=== PATIENT | male | born 1970 | race Caucasian/White ===

== ENCOUNTER 2021-10-02 10:17 | Emergency (ER) | payer MEDICAID, SELFPAY ==
[2021-10-02 10:18] VITALS: BP 156/99; PULSE 76; RESP 16; TEMP 36.6; O2SAT 99; BMI 34.3
[2021-10-02 10:48] VITALS: BMI 34.6
--- NOTE | 2021-10-02 11:14 | EDS_ITS ---
HPI History of Present Illness Chief Complaint: Neuro S/Sx Informant: patient Onset/Context/Timing Onset: Today Context: Sudden Onset Timing: Continuous Quality: I slowed down Location: Generalized Worsened by: Nothing Relieved by: Nothing Narrative Narrative: Patient presents with headache and feeling like I slowed down. Patient states this began today. Patient states he began while he was in group therapy today. Patient states his hands got cold. Patient admits to a left occipital headache. Patient states that he started amlodipine and omeprazole today. Patient states his symptoms began after he took the amlodipine this morning. Patient denies any paresthesias. Patient denies any visual changes. Patient denies any nausea or vomiting. [facility] Medical History Arthritis GERD (gastroesophageal reflux disease) H/O hemorrhoids Hypertension Home Medications amlodipine 5 mg PO DAILY 10/02/21 [History Last Taken Unknown] ibuprofen 600 mg PO Q8H 10/02/21 [History Last Taken Unknown] omeprazole 40 mg PO DAILY 10/02/21 [History Last Taken Unknown] Allergy/AdvReac Type Severity Reaction Status Date / Time Penicillins [PCN] Allergy Unknown Verified 10/02/21 10:20 Social History Smoking Status: Current every day smoker tobacco type: cigarettes ROS ROS ED Constitutional Constitutional ED: Denies chills or fever(s) Eyes Eyes: Denies blurry vision or change in vision ENT ENT ED: Denies rhinorrhea or sore throat Cardiovascular Cardiovascular: Denies chest pain or palpitations Respiratory/Chest Respiratory/Chest: Denies cough or dyspnea Gastrointestinal Gastrointestinal: Denies nausea or vomiting Genitourinary Genitourinary ED: Denies dysuria or hematuria Musculoskeletal Musculoskeletal: Denies back pain or neck pain Integumentary Denies abscess or rash Neurologic Neurologic: Reports headache(s); Denies weakness Allergic/Immunologic Allergic/Immunologic ED: Denies mouth swelling or urticaria EXAM Physical Exam Const Vital Signs: 10/02/21 10:18 Temperature 97.8 F Temperature Source Temporal Pulse Rate 76 Respiratory Rate 16 Blood Pressure 156/99 H Blood Pressure Mean 118 Pulse Ox 99 Oxygen Delivery Method Room Air Positive well nourished and well developed General Appearance ED: well developed HEENT Reports moist mucous membranes Neck supple and no JVD Resp normal respiratory effort and clear to auscultation bilaterally Cardio regular rate, regular rhythm and no murmurs GI normal to inspection, nondistended, normoactive bowel sounds and non-tender Palpation: soft Extremity normal to inspection General Extremety ED: Negative for edema or tenderness General Extremity: Negative for edema Neuro oriented x3, CN's II-XII intact bilaterally and no sensory deficits noted Sensorium / Orientation: alert Motor Exam: strength 5/5 throughout Psych mental status grossly normal Skin no rashes or lesions noted MDM MDM MDM Narrative Medical decision making narrative: CBC was within normal limits. PT was INR and PTT were within normal limits. Comprehensive metabolic profile was obtained and was within normal limits. CT scan of the brain was obtained. There is no acute intracranial abnormality. This was interpreted by the radiologist and reviewed by myself. Patient is feeling better on reevaluation. Patient was instructed to follow-up with his primary care physician in 5 to 7 days for reevaluation. Patient was instructed return if worse in any way. Patient understood and was agreeable with the plan. All questions were answered. Lab Data Attestation: I reviewed the patient's lab results. Labs: Laboratory Results - last 24 hr 10/02/21 10/02/21 10/02/21 11:56 11:56 11:56 WBC 6.0 RBC 5.38 Hgb 16.6 H Hct 48.1 MCV 89.4 MCH 30.9 MCHC 34.5 RDW Std Deviation 44.2 H RDW Coeff of Minal 13.5 Plt Count 296 MPV 8.7 Immature Gran % (Auto) 0.300 Neut % (Auto) 64.3 Lymph % (Auto) 23.4 [place] % (Auto) 10.7 H Eos % (Auto) 1.0 Baso % (Auto) 0.3 Absolute Neuts (auto) 3.8 Absolute Lymphs (auto) 1.40 Nucleated RBC % 0 PT 12.6 INR 1.0 APTT 35.7 Sodium 137 Potassium 4.3 Chloride 105 Carbon Dioxide 28.0 Anion Gap 4 L BUN 12 Creatinine 0.86 Estim Creat Clear Calc 84.13 Est GFR (MDRD) Af Amer 121 Est GFR (MDRD) Non-Af 100 BUN/Creatinine Ratio 14.0 Glucose 92 Calcium 9.0 Total Bilirubin 1.10 H AST 29 ALT 47 Alkaline Phosphatase 96 Total Protein 7.9 Albumin 4.2 Globulin 3.7 Albumin/Globulin Ratio 1.1 Radiography Chest X-Ray - ED: 1 View, Read by ED Physician, Read by Radiologist and Normal Diagnostic Testing: Clinical Impression(s) from Imaging Studies Brain CT 10/02/21 11:46 IMPRESSION: Normal unenhanced CT scan of the brain. Electronically Signed: Flynn Cisneros MD at 12:20 EST , Discharge Plan Triage Chief Complaint: Neuro S/Sx ED Provider: Breezy Cobb Dx/Rx/DC Orders Clinical Impression: Episode of confusion Instructions: ED Confusion Prescriptions: No Action amlodipine 5 mg tablet 5 mg PO DAILY RF: 0 omeprazole 40 mg capsule,delayed release(DR/EC) 40 mg PO DAILY RF: 0 ibuprofen 400 MG tablet 600 mg PO Q8H RF: 0 Primary Care Provider: Care Physician,No Primary Referrals: Care Physician,No Primary [Primary Care Provider] - Doctor,Your [STAFF PHYSICIAN] - 5-7 Days Disposition Disposition: Home, Self Care
--- NOTE | 2021-10-02 11:46 | CT_ITS ---
STUDY: CT BRAIN WITHOUT CONTRAST REASON FOR EXAM: Male, 51 years old. Confusion RADIATION DOSAGE (If Supplied By Facility): CTDIvol = ( 44.99 ) mGy, DLP = ( 829.85 ) mGycm TECHNIQUE: Transaxial CT imaging of the brain was performed without administration of intravenous contrast material. Individualized dose optimization techniques were used for this CT. COMPARISON: No relevant priors. FINDINGS: Normal soft tissue structures. Normal calvarium. Normal size ventricles and extra-axial spaces for the patient''s age. Normal white matter tracts of the cerebral hemispheres. Normal basal ganglia and thalami. Normal brainstem. Normal cerebellum. There is no intracranial hemorrhage. There are no findings of an acute ischemic infarction. Normal visualized paranasal sinuses. CT/Brain/Head without Contrast IMPRESSION: Normal unenhanced CT scan of the brain. Electronically Signed: Flynn Cisneros MD at 12:20 EST ,
[2021-10-02 12:10] LABS: Absolute Neutrophil Count 3.8 X10^3/uL (2.0-7.7); Basophil# 0.02 X10^3/uL; Basophil% 0.3 % (0-1); Eosinophil# 0.06 X10^3/uL; Hematocrit 48.1 % (40-54); Hemoglobin 16.6 g/dL (13.0-16.5); Lymphocyte % 23.4 % (19-41); Mean Corp Hgb Conc 34.5 g/dL (32-36); Mean Corpuscular Hgb 30.9 pg (27.0-32.0); Mean Corpuscular Volume 89.4 fL (80-94); Mean Platelet Vol. 8.7 fl (6.2-12.0); Monocyte# 0.64 X10^3/uL; Monocyte% 10.7 % (0-10); NRBC Flagged by Analyzer 0 % (0-5); Neutrophil # 3.84 X10^3/uL (2.7-7.7); Neutrophil % 64.3 % (47-70); Platelet Count 296 K/mm3 (150-450); RBC Distribution Width CV 13.5 % (11.6-14.6); RBC Distribution Width SD 44.2 fl (35.1-43.9); Red Blood Count 5.38 M/mm3 (4.6-6.2)
[2021-10-02 12:17] LABS: Prothrombin Time (Protime)PT. 12.6 SECONDS (11.7-14.9)
[2021-10-02 12:18] LABS: Partial Thromboplast Time 35.7 Seconds (24.1-36.2)
[2021-10-02 12:24] LABS: ALB/GLOB Ratio 1.1 RATIO (0.9-2.4); AST(SGOT) 29 U/L (15-37); Alanine Aminotransfer ALT/SGPT 47 U/L (16-61); Albumin, Serum 4.2 g/dL (3.2-5.0); Alkaline Phosphatase 96 U/L (45-117); Anion Gap 4 (5-15); BUN 12 mg/dL (7-18); Chloride 105 mmol/L (98-107); Creatinine, Serum 0.86 mg/dL (0.70-1.30); EST Glomerular Filtration Rate 100 mL/min (>60); Est Glom Filt Rate - Afr Amer 121 mL/min (>60); Estimated Creatinine Clearance 84.13 ml/min; Globulin 3.7 g/dL (2.2-4.2); Glucose 92 mg/dL (74-106); Potassium 4.3 mmol/L (3.5-5.1); Protein, Total 7.9 g/dL (6.4-8.2); Sodium Level 137 mmol/L (136-145)
[2021-10-02 12:56] VITALS: BP 150/96; PULSE 61; RESP 19; O2SAT 97
== END 2021-10-02 13:08 | disposition home or self-care (01) ==
PROVIDERS: Emergency Provider Emergency Medicine; Visit Provider Emergency Medicine
DX: R41.0 Disorientation, unspecified (principal); R51.9 Headache, unspecified; F17.210 Nicotine dependence, cigarettes, uncomplicated; I10 Essential (primary) hypertension; M19.90 Unspecified osteoarthritis, unspecified site; K21.9 Gastro-esophageal reflux disease without esophagitis; Z79.899 Other long term (current) drug therapy
CPT/HCPCS: 70450; 80053; 85025; 85610; 85730; 87426; 99284

== ENCOUNTER 2022-05-08 14:32 | Emergency (ER) | payer BC, MEDICAID, SELFPAY ==
[2022-05-08 14:33] VITALS: BP 146/99; PULSE 97; RESP 16; TEMP 36.6; O2SAT 98; BMI 31.7
--- NOTE | 2022-05-08 15:09 | EX.ED.DYSGE1 ---
HPI History of Present Illness Chief Complaint: Lower Extremity Injury Informant: patient Narrative Narrative: Patient was referred here today for left calf swelling and pain. He states this started about 7 to 10 days ago. Nothing seemed to initiated. It just started getting painful and then swelled. He was seen at [facility] emergency department. They did an ultrasound that reported a ruptured Heart's cyst. He does have a history of knee problems on the side but is not actually having knee pain. This is posterior calf pain. No blood work was done at this point. They referred him to orthopedics. He tried to get into see anybody he could for follow-up. So he saw [facility] about 2 days ago. They placed him on an unknown antibiotic 3 times a day. He states he has been icing and elevating the leg and has been getting progressively a bit better. The swelling is less and the pain is less. It was improving even before the antibiotics. He has never had fevers chills nausea vomiting or felt ill in any way. He has no recent infections. He had no puncture or poke or trauma to the leg. He has history of drug use in the past but no IV drug use in quite some time. He saw orthopedics today. They were concerned about possible infected abscess and referred him here for blood work and either CT or MRI imaging. [facility] Medical History Arthritis GERD (gastroesophageal reflux disease) H/O hemorrhoids Hypertension Left leg cellulitis Home Medications amlodipine 5 mg tablet 5 mg PO DAILY 10/02/21 [History Last Taken 05/08/22] ibuprofen 400 mg tablet 600 mg PO Q8H PRN Pain 10/02/21 [History Last Taken Unknown] omeprazole 40 mg capsule,delayed release 40 mg PO DAILY 10/02/21 [History Last Taken 05/08/22] lisinopril 5 mg tablet 5 mg PO DAILY 05/08/22 [History Last Taken 05/08/22] Allergy/AdvReac Type Severity Reaction Status Date / Time Penicillins [PCN] Allergy Unknown Verified 05/08/22 14:36 Social History Smoking Status: Current every day smoker tobacco type: cigarettes ROS ROS ED Constitutional Constitutional ED: Denies chills, fever(s), subjective or sweats ENT ENT ED: Denies sore throat Cardiovascular Cardiovascular: Denies chest pain or palpitations Respiratory/Chest Respiratory/Chest: Denies cough or dyspnea Gastrointestinal Gastrointestinal: Denies abdominal pain, diarrhea, nausea or vomiting Musculoskeletal Musculoskeletal: Reports other Details: See history of present illness peer ; Denies arthralgias or myalgias Integumentary Reports other Details: No erythema. He has had some swelling. See history of present illness. Neurologic Neurologic: Denies paresthesias or weakness Endocrine Endocrinology: Denies polydipsia or polyuria Hematologic/Lymphatic Hematologic/Lymphatic: Denies easy bleeding, easy bruising or lymphadenopathy Allergic/Immunologic Allergic/Immunologic ED: Denies urticaria EXAM Physical Exam Const Vital Signs: 05/08/22 14:33 05/08/22 15:23 05/08/22 17:19 Temperature 98 F 98 F 97.7 F L Temperature Source Temporal Temporal Axillary Pulse Rate 97 97 71 Respiratory Rate 16 16 18 Blood Pressure 146/99 H 146/99 H 152/87 H Blood Pressure Mean 114 114 108 Pulse Ox 98 98 99 Oxygen Delivery Method Room Air Room Air Room Air 05/08/22 18:36 05/08/22 19:18 Temperature Temperature Source Pulse Rate 64 66 Respiratory Rate 18 17 Blood Pressure 157/78 H 127/70 H Blood Pressure Mean 104 Pulse Ox 98 99 Oxygen Delivery Method Room Air Positive well nourished and well developed General Appearance ED: well developed and NAD HEENT Reports moist mucous membranes Eyes General Eye ED: Negative for scleral icterus Neck no lymphadenopathy Resp normal respiratory effort and clear to auscultation bilaterally Cardio regular rate and regular rhythm GI normal to inspection, nondistended, normoactive bowel sounds Palpation: soft Back/Spine no CVA tenderness Extremity Extremity Narrative: Patient does have some swelling of his calf on the left compared to the right. Trace edema at the ankle. There is almost a hint of bruising. There is no significant erythema. There is mild warmth. Distal pulses are intact. I can squeeze his calf pretty firmly and there is no obvious discomfort. I see no lymphangitic streaking. I feel no proximal lymph nodes. Neuro Sensorium / Orientation: alert Psych mental status grossly normal Skin Skin Narrative: See above. MDM MDM MDM Narrative Medical decision making narrative: Patient's white count was normal. However, he did have a slight neutrophil predominance. Electrolytes were normal. Glucose was normal. His ESR was normal but his C-reactive protein was elevated. CT scan of his lower extremity showed suprapatellar effusion, degenerative changes of the knee, popliteal cyst and a fluid collection that was multiloculated and some hyperdense material progressing down the calf. This could be hematoma but infection is certainly not ruled out. I discussed case with orthopedic surgeon, Dr. Nichole. With this patient's history, the neutrophil predominance, elevated CRP and the CT findings he recommended inpatient therapy with IV antibiotics. He would not go to the OR at this time. Plan was to call the hospitalist. I went back to notify the patient. The patient wants to go home now. He states he will come back in the morning and consider being admitted but he has things he has to get arranged at home now. I encouraged him to stay. I explained the risks and benefits. He is able to repeat those back to me. Initially he was refusing getting an IV dose of antibiotics before he left. I was able to convince him to at least get this. He will be signed out AMA. Lab Data Attestation: I reviewed the patient's lab results. Labs: Laboratory Results - last 24 hr 05/08/22 05/08/22 15:25 15:25 WBC 5.7 RBC 5.09 Hgb 15.6 Hct 46.3 MCV 91.0 MCH 30.6 MCHC 33.7 RDW Std Deviation 43.3 RDW Coeff of Minal 13.0 Plt Count 352 MPV 9.6 Immature Gran % (Auto) 0.400 Neut % (Auto) 76.4 H Lymph % (Auto) 13.2 L [place] % (Auto) 9.3 Eos % (Auto) 0.5 Baso % (Auto) 0.2 Absolute Neuts (auto) 4.3 Absolute Lymphs (auto) 0.75 L Nucleated RBC % 0 ESR 12 Sodium 142 Potassium 4.1 Chloride 107 Carbon Dioxide 28.0 Anion Gap 7 BUN 13 Creatinine 0.85 Estim Creat Clear Calc 84.16 Est GFR (MDRD) Af Amer 122 Est GFR (MDRD) Non-Af 101 BUN/Creatinine Ratio 15.3 Glucose 96 Calcium 9.6 C-React Prot Ext Range 8.52 H Radiography Diagnostic Testing: Clinical Impression(s) from Imaging Studies Lower Extremity CT 05/08/22 15:14 IMPRESSION: Suprapatellar effusion. Degenerative findings of the knee. Popliteal cyst. Along the medial aspect of the lower extremity, there is a fluid collection measuring 141 x 17 mm. This appears multiloculated and contains hyperdense material. This may be hematoma. Close interval follow-up is recommended. Abscess is not entirely excluded. Electronically Signed: Jong Hernandez MD at 16:27 EDT Reading Location ID and State: [facility] / [place] , Service support , Discharge Plan Triage Chief Complaint: Lower Extremity Injury ED Provider: Alfie Rudd Dx/Rx/DC Orders Clinical Impression: Infected fluid collection, Left against medical advice Instructions: Cellulitis, ED Abscess Antibiotic Treatment Only Prescriptions: No Action lisinopril 5 mg tablet 5 mg PO DAILY amlodipine 5 mg tablet 5 mg PO DAILY omeprazole 40 mg capsule,delayed release(DR/EC) 40 mg PO DAILY ibuprofen 400 MG tablet 600 mg PO Q8H PRN (Reason: Pain) Primary Care Provider: Reece Timmons NP Referrals: Reece Timmons RETAIL SHIFT LEADER, RETAIL SHIFT LEADER-C [Primary Care Provider] - Activity Restrictions/Additional Instructions: Stay on your antibiotics. Disposition Disposition: Against Medical Advice Discharge Date/Time: 05/08/22 19:47
--- NOTE | 2022-05-08 15:14 | CT_ITS ---
PROCEDURE: CT LOWER EXTREMITY LEFT TIBIA/FIBULA WITHCONTRAST REASON FOR EXAM: Male, 52 years old. History, Signs T Symptoms pain/swell L calf, bakers cysts rupture vs abscess TECHNIQUE: Transaxial CT imaging of the tibia/fibula was performed post contrast administration. The examination was performed with intravenous administration of 100mL Isovue-300 contrast material. Sagittal and coronal images were reconstructed. Individualized dose optimization techniques were used for this CT. COMPARISON: Plain film done earlier today. FINDINGS: Normal tibia and fibula, without a periosteal, cortical or cancellous marrow abnormality. Normal anterior, lateral, and posterior calf compartments, with normal muscles, crural fascia and intermuscular septa. Suprapatellar effusion. Along the medial aspect of the lower extremity, there is a fluid collection measuring 141 x 17 mm. This appears multiloculated and contains hyperdense material. This may be hematoma.Degenerative findings of the knee. Popliteal cyst. There is a calcaneal spur. There is an enthesophyte involving the posterior superior calcaneus at the site of insertion of the Achilles tendon. CT/Extremity Lower WITH Contrast IMPRESSION: Suprapatellar effusion. Degenerative findings of the knee. Popliteal cyst. Along the medial aspect of the lower extremity, there is a fluid collection measuring 141 x 17 mm. This appears multiloculated and contains hyperdense material. This may be hematoma. Close interval follow-up is recommended. Abscess is not entirely excluded. Electronically Signed: Jong Hernandez MD at 16:27 EDT ,
[2022-05-08 15:23] VITALS: BP 146/99; PULSE 97; RESP 16; TEMP 36.6; O2SAT 98
[2022-05-08 15:48] LABS: Absolute Lymphocyte Count 0.75 X10^3/uL (0.83-4.51); Absolute Neutrophil Count 4.3 X10^3/uL (2.0-7.7); Basophil# 0.01 X10^3/uL; Basophil% 0.2 % (0-1); Eosinophil# 0.03 X10^3/uL; Eosinophils% 0.5 % (0-5); Hematocrit 46.3 % (40-54); Hemoglobin 15.6 g/dL (13.0-16.5); Lymphocyte # 0.75 X10^3/ul (0.83-4.51); Lymphocyte % 13.2 % (19-41); Mean Corp Hgb Conc 33.7 g/dL (32-36); Mean Corpuscular Hgb 30.6 pg (27.0-32.0); Mean Platelet Vol. 9.6 fl (6.2-12.0); Monocyte# 0.53 X10^3/uL; Monocyte% 9.3 % (0-10); NRBC Flagged by Analyzer 0 % (0-5); Neutrophil # 4.34 X10^3/uL (2.7-7.7); Neutrophil % 76.4 % (47-70); Platelet Count 352 K/mm3 (150-450); RBC Distribution Width SD 43.3 fl (35.1-43.9); Red Blood Count 5.09 M/mm3 (4.6-6.2); White Blood Count 5.7 K/mm3 (4.4-11.0)
[2022-05-08 15:56] LABS: Anion Gap 7 (5-15); BUN 13 mg/dL (7-18); BUN/Creat Ratio 15.3 RATIO (10-20); CRP 8.52 mg/L (0.0-3.0); Calcium,Total 9.6 mg/dL (8.5-10.1); Chloride 107 mmol/L (98-107); Creatinine, Serum 0.85 mg/dL (0.70-1.30); EST Glomerular Filtration Rate 101 mL/min (>60); Est Glom Filt Rate - Afr Amer 122 mL/min (>60); Estimated Creatinine Clearance 84.16 ml/min; Glucose 96 mg/dL (74-106); Potassium 4.1 mmol/L (3.5-5.1); Sodium Level 142 mmol/L (136-145)
--- NOTE | 2022-05-08 17:02 | PN.ORTHO_ITS ---
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 Objective Data Objective Data Vital Signs: Vital Signs Temp Pulse Resp BP Pulse Ox O2 Del Method 98 F 97 16 146/99 H 98 Room Air 05/08/22 15:23 05/08/22 15:23 05/08/22 15:23 05/08/22 15:23 05/08/22 15:23 05/08/22 15:23 Oxygen Delivery Method Room Air Weight: 185 lb Body Mass Index (BMI) 31.7 Lab / Micro Data Attestation: I reviewed the patient's lab results. Result Diagrams: 05/08/22 15:25 05/08/22 15:25 Labs: Laboratory Results - last 24 hr 05/08/22 15:25: WBC 5.7, RBC 5.09, Hgb 15.6, Hct 46.3, MCV 91.0, MCH 30.6, MCHC 33.7, RDW Std Deviation 43.3, RDW Coeff of Minal 13.0, Plt Count 352, MPV 9.6, Immature Gran % (Auto) 0.400, Neut % (Auto) 76.4 H, Lymph % (Auto) 13.2 L, [place] % (Auto) 9.3, Eos % (Auto) 0.5, Baso % (Auto) 0.2, Absolute Neuts (auto) 4.3, Absolute Lymphs (auto) 0.75 L, Nucleated RBC % 0, ESR 12 05/08/22 15:25: Sodium 142, Potassium 4.1, Chloride 107, Carbon Dioxide 28.0, Anion Gap 7, BUN 13, Creatinine 0.85, Estim Creat Clear Calc 84.16, Est GFR (MDRD) Af Amer 122, Est GFR (MDRD) Non-Af 101, BUN/Creatinine Ratio 15.3, Glucose 96, Calcium 9.6, C-React Prot Ext Range 8.52 H Radiography Diagnostic Testing: Radiology Impression Lower Extremity CT 05/08/22 15:14 IMPRESSION: Suprapatellar effusion. Degenerative findings of the knee. Popliteal cyst. Along the medial aspect of the lower extremity, there is a fluid collection measuring 141 x 17 mm. This appears multiloculated and contains hyperdense material. This may be hematoma. Close interval follow-up is recommended. Abscess is not entirely excluded. Electronically Signed: Jong Hernandez MD at 16:27 EDT , Assessment & Plan Assessment/Plan (1) Left leg cellulitis: PLAN: I spoke with the ED physician Dr. Rudd, who was taking over for Dr. Smith at 5pm today. There is a multi loculated collection there medial gastrocs area, and my high clinical suspicion of a consolidating infection / abscess remains although on the differential could still be hematoma or ruptured Bakers cyst. i think the best course of action here would be for the ED doctor to request hospitalist consultation and admission for IV antibiotics with broad- spec MRSA coverage and follow the blood work and clinical exam to see how this progresses over the weekend. I will follow the patient while in hospital. I do not think there is a role for acute surgical intervention at the moment, and would be difficult for percutaneous drainage given multi loculated nature of the area, however, those would both be options depending on the progression and response to antibiotics.
[2022-05-08 17:19] VITALS: BP 152/87; PULSE 71; RESP 18; TEMP 36.5; O2SAT 99
[2022-05-08 18:36] VITALS: BP 157/78; PULSE 64; RESP 18; O2SAT 98
[2022-05-08 19:18] VITALS: BP 127/70; PULSE 66; RESP 17; O2SAT 99
[2022-05-08 23:47] LABS: Erythrocyte Sedimentation Rate 9 mm/hr (0-20)
== END 2022-05-08 19:47 | disposition left against medical advice (07) ==
PROVIDERS: Emergency Provider Emergency Medicine; PCP Nurse Practitioner Primary Care; Visit Provider Emergency Medicine
DX: L03.116 Cellulitis of left lower limb (principal); M79.89 Other specified soft tissue disorders; M79.662 Pain in left lower leg; M17.12 Unilateral primary osteoarthritis, left knee; Z53.29 Procedure and treatment not carried out because of patient's decision for other reasons; R79.82 Elevated C-reactive protein (CRP); I10 Essential (primary) hypertension; M71.22 Synovial cyst of popliteal space [Baker], left knee; F17.210 Nicotine dependence, cigarettes, uncomplicated; Z79.899 Other long term (current) drug therapy
CPT/HCPCS: 73701; 80048; 85025; 85652; 86140; 96365; 96366; 99283; J7050; Q9967; A4216

== ENCOUNTER 2022-05-20 17:05 | Emergency (ER) | payer BC, MEDICAID, SELFPAY ==
[2022-05-20 17:06] VITALS: BP 116/77; PULSE 76; RESP 18; TEMP 36; O2SAT 97; BMI 30.9
--- NOTE | 2022-05-20 17:26 | CT_ITS ---
HISTORY: Pain, History of Fluid Collection Date: 05/20/2022 6:11 PM Technique: CT examination obtained with standard protocol including axial imaging with multiplanar reconstructions. Postcontrast imaging is obtained. Radiation Dose (provided by facility) CTDIvol (15.35 ) mGy, DLP ( 703.0) mGy-cm Location: LEFT calf Contrast: 100 mL Omnipaque 100 Comparison: 05/08/2022 FINDINGS: BONY ELEMENTS: 1. Normal alignment bony elements without evidence of fracture malalignment. No destructive bony process noted. JOINT SPACES: 1. Visualized joint spaces are maintained. Marginal osteophyte formation is present. There however is a small joint effusion. 2. There is mild enhancement of the synovial surface. No destructive bony process noted. 3. Moderate to marked osteophyte formation involving all 3 compartments of the LEFT knee. Subchondral degenerative cystic changes also present within the medial tibial plateau. DEEP MUSCULAR COMPARTMENTS: 1. Normal appearance of the visualized anterior, posterior, and lateral compartments of the calf. NEURAL VASCULAR COMPARTMENTS: 1. Normal appearance of the neural vascular compartments SOFT TISSUES. 1. There is a popliteal cyst with slight increase in size in the interval, maximal distention approaches 12 mm, in previous exam maximal distention estimated at 7 mm. 2. There is an additional fluid collection extending along the fissural surface along the medial aspect of the medial head gastrocnemius, measuring approximately 5.4 x 1.5 cm in axial dimension, and 7.0 cm in superior to inferior dimension. Mildly heterogeneous density, mild peripheral enhancement, and central areas of increased density within the fluid collection, this has characteristic appearance of a hematoma. No soft tissue gas or air bubbles noted. CT/Extremity Lower WITH Contrast IMPRESSION: 1. Fluid collection extending along the medial capsular surface the medial head of gastrocnemius, measuring 5.4 x 1.5 x 7.0 cm. Appearance is most consistent with a uterine involving hematoma. There has been moderate decrease in size in the interval. 2. Heart''s cyst has increased in distention in the interval. There is an additional joint effusion and osteoarthritic changes involving the knee without change. 3. No acute bony changes. No acute destructive bony process noted. Electronically Signed: Frankie Sanchez MD at 19:13 EDT ,
--- NOTE | 2022-05-20 17:28 | EX.ED.DYSGE1 ---
HPI History of Present Illness Chief Complaint: Cellulitis Narrative Narrative: Patient presents with continued pain, and swelling of his left calf that he had at least for the last week to 10 days. He relates history that he was seen at [place] emergency department, and was following up with orthopedics. He had history of a ruptured Heart's cyst. He had pain and swelling of his left calf, went to see Dr. Nichole with orthopedics, who sent him to the emergency department. He states he was given IV antibiotics, and recently finished his antibiotic yesterday. He states he was on 3 different types of antibiotics, and when he was seen by orthopedics today, they sent him to the emergency department for an MRI. He states he is having continued pain and swelling of his left calf. He denies fevers or chills. No redness to the area. [facility] Medical History Arthritis GERD (gastroesophageal reflux disease) H/O hemorrhoids Hypertension Left leg cellulitis Home Medications omeprazole 40 mg capsule,delayed release 40 mg PO DAILY 10/02/21 [History Last Taken 05/08/22] lisinopril 5 mg tablet 5 mg PO DAILY 05/08/22 [History Last Taken 05/08/22] Allergy/AdvReac Type Severity Reaction Status Date / Time Penicillins [PCN] Allergy Unknown Verified 05/20/22 17:05 Social History Smoking Status: Current every day smoker tobacco type: cigarettes ROS ROS ED ROS Narrative Constitutional: No fever, no chills. HEENT: No sore throat. No neck pain. No loss of vision. No rhinorrhea. Cardiovascular: No chest pain. No palpitations. No pedal edema. Respiratory: No cough, no shortness of breath. Abdominal: No abdominal pain. No nausea. No vomiting. Genitourinary: No dysuria. No hematuria. Musculoskeletal: Left calf pain and swelling. Treated for infected fluid collection of left lower extremity, finishing antibiotics yesterday. Neurologic: No headaches. No dizziness. No lightheadedness. Skin: No rash. No change in color. Psychiatric: No depression. No anxiety. EXAM Physical Exam Narrative Exam Narrative: Afebrile. Vital signs noted. HEENT: Normocephalic. Atraumatic. PERRL, EOMI. Neck soft and supple. No point tenderness or step off. Cardiovascular: Regular rate and rhythm. No murmurs, rubs, or gallops appreciated. Respiratory: No tachypnea. Lungs clear to auscultation bilaterally. Gastrointestinal: Abdomen soft, nontender, with normoactive bowel sounds. No rebound or guarding. Neurological: Awake. Alert. Nonfocal, nonlateralizing. Skin: No rash. Normal color. No pallor. Musculoskeletal: No pedal edema. Full range of motion extremities. Diffuse tenderness to palpation left calf, no induration. No erythema. Palpable dorsalis pedis pulse. Const Vital Signs: 05/20/22 17:06 05/20/22 17:14 Temperature 96.8 F L Temperature Source Temporal Pulse Rate 76 Respiratory Rate 18 Respiratory Effort Normal Respiratory Pattern Normal Blood Pressure 116/77 Blood Pressure Mean 90 Pulse Ox 97 Oxygen Delivery Method Room Air MDM MDM MDM Narrative Medical decision making narrative: I reviewed his prior records. He did have CT imaging performed. I will repeat this. I do not feel emergent MRI is indicated. I will obtain baseline laboratories also. CBC is grossly normal with white count of 5.1, hemoglobin 15.5, hematocrit 46.4, and normal platelet count of 282. Electrolyte panel shows glucose appropriately elevated at 136 with a normal anion gap of 6, otherwise unremarkable. CT of the left lower extremity with IV contrast was obtained. There has been moderate resolution of the fluid collection that was thought to be a resolving hematoma. As his physical exam shows no evidence of compartment syndrome and he is neurovascular intact distally, I feel he be discharged safely home with follow-up. I discussed patient with Dr. Okeefe with orthopedics who agrees with outpatient follow-up. It was not thought that this was an abscess that requires drainage in the OR as there has been moderate improvement with this antibiotic therapy. Return instructions to the emergency department were reviewed. Disposition is discharged home in stable condition. Lab Data Attestation: I reviewed the patient's lab results. Labs: Laboratory Results - last 24 hr 05/20/22 05/20/22 17:35 17:35 WBC 5.1 RBC 5.08 Hgb 15.5 Hct 46.4 MCV 91.3 MCH 30.5 MCHC 33.4 RDW Std Deviation 44.5 H RDW Coeff of Minal 13.2 Plt Count 282 MPV 9.2 Immature Gran % (Auto) 0.200 Neut % (Auto) 64.7 Lymph % (Auto) 23.2 Henry % (Auto) 9.7 Eos % (Auto) 1.8 Baso % (Auto) 0.4 Absolute Neuts (auto) 3.3 Absolute Lymphs (auto) 1.17 Nucleated RBC % 0 Sodium 140 Potassium 4.2 Chloride 107 Carbon Dioxide 27.0 Anion Gap 6 BUN 12 Creatinine 0.86 Estim Creat Clear Calc 83.18 Est GFR (MDRD) Af Amer 120 Est GFR (MDRD) Non-Af 99 BUN/Creatinine Ratio 14.0 Glucose 136 H Calcium 9.1 Total Bilirubin 0.90 AST 16 ALT 24 Alkaline Phosphatase 73 Total Protein 6.9 Albumin 3.9 Globulin 3.0 Albumin/Globulin Ratio 1.3 Radiography Diagnostic Testing: Clinical Impression(s) from Imaging Studies Lower Extremity CT 05/20/22 17:26 IMPRESSION: 1. Fluid collection extending along the medial capsular surface the medial head of gastrocnemius, measuring 5.4 x 1.5 x 7.0 cm. Appearance is most consistent with a uterine involving hematoma. There has been moderate decrease in size in the interval. 2. Heart''s cyst has increased in distention in the interval. There is an additional joint effusion and osteoarthritic changes involving the knee without change. 3. No acute bony changes. No acute destructive bony process noted. Electronically Signed: Franike Sanchez MD at 19:13 EDT Reading Location ID and State: [address] [place] [address] Tel , Service support , Discharge Plan Triage Chief Complaint: Cellulitis ED Provider: Rell Judd Dx/Rx/DC Orders Clinical Impression: Pain of left calf, Hematoma Prescriptions: No Action lisinopril 5 mg tablet 5 mg PO DAILY omeprazole 40 mg capsule,delayed release(DR/EC) 40 mg PO DAILY Primary Care Provider: Reece Timmons NP Referrals: Andre Nichole MD [Med Staff - Active Staff] - 1 Week if not improving Reece Timmons PHYSICIAN UNDERWRITER, PHYSICIAN UNDERWRITER-C [Primary Care Provider] - Disposition Disposition: Home, Self Care
[2022-05-20] MEDS: 0.9% Normal Saline 1,000 ML 999 ML IV (17:36)
[2022-05-20 17:41] LABS: Absolute Lymphocyte Count 1.17 X10^3/uL (0.83-4.51); Absolute Neutrophil Count 3.3 X10^3/uL (2.0-7.7); Basophil# 0.02 X10^3/uL; Basophil% 0.4 % (0-1); Eosinophil# 0.09 X10^3/uL; Eosinophils% 1.8 % (0-5); Hematocrit 46.4 % (40-54); Hemoglobin 15.5 g/dL (13.0-16.5); Lymphocyte # 1.17 X10^3/ul (0.83-4.51); Lymphocyte % 23.2 % (19-41); Mean Corp Hgb Conc 33.4 g/dL (32-36); Mean Corpuscular Hgb 30.5 pg (27.0-32.0); Mean Corpuscular Volume 91.3 fL (80-94); Mean Platelet Vol. 9.2 fl (6.2-12.0); Monocyte# 0.49 X10^3/uL; Monocyte% 9.7 % (0-10); NRBC Flagged by Analyzer 0 % (0-5); Neutrophil # 3.27 X10^3/uL (2.7-7.7); Neutrophil % 64.7 % (47-70); Platelet Count 282 K/mm3 (150-450); RBC Distribution Width CV 13.2 % (11.6-14.6); RBC Distribution Width SD 44.5 fl (35.1-43.9); Red Blood Count 5.08 M/mm3 (4.6-6.2); White Blood Count 5.1 K/mm3 (4.4-11.0)
[2022-05-20 18:01] LABS: ALB/GLOB Ratio 1.3 RATIO (0.9-2.4); AST(SGOT) 16 U/L (15-37); Alanine Aminotransfer ALT/SGPT 24 U/L (16-61); Albumin, Serum 3.9 g/dL (3.2-5.0); Alkaline Phosphatase 73 U/L (45-117); Anion Gap 6 (5-15); BUN 12 mg/dL (7-18); Calcium,Total 9.1 mg/dL (8.5-10.1); Chloride 107 mmol/L (98-107); Creatinine, Serum 0.86 mg/dL (0.70-1.30); EST Glomerular Filtration Rate 99 mL/min (>60); Est Glom Filt Rate - Afr Amer 120 mL/min (>60); Estimated Creatinine Clearance 83.18 ml/min; Glucose 136 mg/dL (74-106); Potassium 4.2 mmol/L (3.5-5.1); Protein, Total 6.9 g/dL (6.4-8.2); Sodium Level 140 mmol/L (136-145)
[2022-05-20 19:51] VITALS: BP 123/82; PULSE 59; RESP 16; O2SAT 98
== END 2022-05-20 19:53 | disposition home or self-care (01) ==
PROVIDERS: Emergency Provider Emergency Medicine; PCP Nurse Practitioner Primary Care; Visit Provider Emergency Medicine
DX: M79.662 Pain in left lower leg (principal); I10 Essential (primary) hypertension; F17.210 Nicotine dependence, cigarettes, uncomplicated; M79.89 Other specified soft tissue disorders; Z79.899 Other long term (current) drug therapy
CPT/HCPCS: 73701; 80053; 85025; 99283; Q9967